=== PATIENT | female | born 1985 | race Caucasian/White ===

== ENCOUNTER 2018-06-30 14:48 | Emergency (ER) | payer OTHER ==
[~2018-06-30] VITALS: Ht 152.4 cm; Wt 62.3 kg
[2018-06-30] MEDS ORDERED: [UNRECOGNIZED DRUG - CODE] PO (14:56)
--- NOTE | 2018-06-30 15:43 | REP ---
Head CT without contrast: History: Episodic visual changes. Now resolved. Comparison study: No comparison study. CT findings: Bone window settings demonstrate an intact bony calvarium. There is no evidence of skull fracture or incidental bony calvarial lesion. The visualized paranasal sinuses appear clear. No intraorbital abnormality is seen. On soft tissue window setting images; the lateral, third, and fourth ventricles are normal in size and position. Crespo-white differentiation pattern is normal above and below the tentorium. There are is no evidence of intracranial hemorrhage. No mass, edema, infarction, or midline shift is seen. No extra-axial fluid collection is appreciated. Impression: Negative noncontrast head CT. Electronically Signed by Bill Zuniga MD 06/30/2018 03:34 P
[2018-06-30] MEDS ORDERED: METOCLOPRAMIDE INJ 10MG/2ML VIAL (J2765) IV ONE (16:30)
--- NOTE | 2018-06-30 16:53 | REP ---
Portable chest x-ray: Single view. History: CVA. Findings: The lungs are well inflated and clear. The pleural angles are sharp. Heart size is normal. Pulmonary vasculature is not increased. No significant bony abnormality is seen. Impression: Negative portable chest x-ray. Electronically Signed by Bill Zuniga MD 06/30/2018 04:44 P
[2018-06-30] MEDS: NS 1,000 ML IV SCH (17:00)
[2018-06-30 17:20] LABS: BASO % 0.5 % (0.0-1.0); EOS # 0.2 10^3/uL (0.0-0.50); EOS % 2.5 % (0.0-3.0); HEMATOCRIT 38.2 % (36.0-47.0); HEMOGLOBIN 12.4 g/dl (12.0-15.5); LYMPH # 1.9 10^3/uL (1.5-4.5); LYMPH % 21.2 % (24.0-44.0); MEAN CORPUSCULAR HGB CONC 32.5 g/dl (32.0-36.5); MEAN CORPUSCULAR VOLUME 95.5 fl (80.0-96.0); MONO # 0.6 10^3/uL (0.0-0.8); MONO % 6.2 % (0.0-5.0); NEUTROPHILS # 6.1 10^3/uL (1.8-7.7); NEUTROPHILS % 69.4 % (36.0-66.0); PLATELET COUNT, AUTOMATED 356 10^3/uL (150-450); WHITE BLOOD COUNT 8.8 10^3/uL (4.0-10.0)
[2018-06-30 17:30] LABS: INR 0.98; PROTHROMBIN TIME 13.1 SECONDS (12.1-14.4)
[2018-06-30 17:31] LABS: PARTIAL THROMBOPLASTIN TIME 28.4 SECONDS (25.4-37.6)
[2018-06-30 17:36] LABS: BLOOD UREA NITROGEN 16 MG/DL (7-18); CALCIUM LEVEL 8.8 MG/DL (8.5-10.1); CARBON DIOXIDE LEVEL 28 MEQ/L (21-32); CHLORIDE LEVEL 106 MEQ/L (98-107); CPK CREATINE PHOSPHOKINASE 115 U/L (26-192); CREATININE FOR GFR 0.65 MG/DL (0.55-1.30); GLOMERULAR FILTRATION RATE > 60.0 (>60); GLUCOSE, FASTING 87 MG/DL (70-100); POTASSIUM SERUM 4.2 MEQ/L (3.5-5.1); SODIUM LEVEL 141 MEQ/L (136-145); TROPONIN I < 0.02 NG/ML (< 0.10)
--- NOTE | 2018-06-30 20:43 | REPVR ---
EXAM: MR Head Without Contrast EXAM DATE/TIME: 06/30/2018 6:25 PM CLINICAL HISTORY: 33 years old, female; Signs and symptoms; Speech disturbance; Slurred speech; Patient HX: Slurred speech, numbness, h/a that has since subsided; Additional info: CVA TECHNIQUE: MR of the head without contrast. COMPARISON: CT Head without contrast 06/30/2018 3:11 PM FINDINGS: No abnormal restriction of diffusion to indicate acute CVA. Midline structures and cerebellar tonsillar position appear normal. Ventricles, cisterns and sulci are symmetric and normal for age. No intracranial mass, midline shift or abnormal extra-axial fluid. No acute intracranial hemorrhage. No abnormal white matter signal on FLAIR and T2 sequences. Optic chiasm and pituitary infundibulum appear normal. Normal vascular flow voids in major intracranial arteries and dural venous sinuses. Paranasal sinuses are clear. Mastoid air cells are normally aerated. Optic globes and orbits are unremarkable. IMPRESSION: Unremarkable noncontrast MRI of the brain. Electronically signed by: Bay Abbott On 06/30/2018 20:43:11 PM
--- NOTE | 2018-06-30 20:53 | REPVR ---
EXAM: MR Angiogram Head Without Contrast, Arteries EXAM DATE/TIME: 06/30/2018 6:25 PM CLINICAL HISTORY: 33 years old, female; Signs and symptoms; Headache; Patient HX: Slurred speech, numbness, h/a that has since subsided; Additional info: CVA TECHNIQUE: MR angiogram head without contrast. Exam focused on the arteries. MIP reconstructed images were created and reviewed. COMPARISON: CT Head without contrast 06/30/2018 3:11 PM FINDINGS: Anterior circulation: Normal flow signal and luminal caliber in the petrous, cavernous and supraclinoid internal carotid arteries. Normal appearance of the anterior cerebral artery branches and middle cerebral artery branches through the MCA trifurcations. No occlusion, high-grade focal stenosis or dissection. No aneurysm. Posterior circulation: Diminutive distal left vertebral artery, terminating in a small posterior fossa branch developmentally. Dominant left vertebral artery supplies the basilar artery. Patent normal caliber basilar artery, and normal superior cerebellar and posterior cerebral arteries. No occlusion, high-grade stenosis or aneurysm. IMPRESSION: Unremarkable MR angiogram of the [place] and intracranial vertebrobasilar system. Electronically signed by: Bay Abbott On 06/30/2018 20:53:17 PM
[2018-06-30 21:50] VITALS: BP 142/76
--- NOTE | 2018-07-01 09:11 | ECGEPIP ---
Stationary ECG Study [facility] - ED Test Date: 2018-06-30 Pat Name: TORRES BLANCO Department: Room: - Gender: F Compounding Technician: OBIE : 1985 Requested By: GARY Pena Order Number: [id number] Reading MD: Ra Waldron Measurements Intervals [place] Rate: 64 P: 46 OK: 143 QRS: 53 QRSD: 89 T: 54 QT: 409 QTc: 424 Interpretive Statements SINUS RHYTHM WITH OCCASIONAL SUPRAVENTRICULAR PREMATURE COMPLEXES Delayed anterior R wave progression Comparison tracing not on file Electronically Signed On 07-01-2018 9:10:58 EST by Ra Waldron
== END 2018-06-30 21:53 | disposition home or self-care (01) ==
LOC: EDBD 14:48 → M ED 14:48
DX: R51 Headache (principal); Z79.899 Other long term (current) drug therapy; Z88.8 Allergy status to other drugs, medicaments and biological substances
CPT/HCPCS: 36415; 70450; 70544; 70551; 71045; 80048; 82550; 82553; 84484; 85025; 85610; 85730; 86850; 86900; 86901; 93005; 93041; 94760; 96361; 96374; 99284; J2765

== ENCOUNTER → 2018-10-26 | Outpatient (CLI) | payer OTHER ==
[~2018-10-26] MED LIST: [UNRECOGNIZED DRUG - OTHER] PO
--- NOTE | 2018-10-26 07:32 | REP ---
Clinical: Abdominal pain. Technique: Axial noncontrast images from the lung bases to the pubic symphysis with coronal and sagittal re-formations. Findings: Lung bases are clear. Liver, spleen, pancreas, gallbladder, bilateral adrenal glands and kidneys are normal. The enteric system is without obstruction or acute inflammatory process. Normal terminal ileum and appendix identified in the right lower quadrant. Pelvis demonstrates collapsed normal bladder and evidence for prior hysterectomy. No ascites. No free air. No adenopathy. Abdominal aorta without aneurysm. Musculoskeletal structures are intact. Impression: No acute abdominopelvic pathology appreciated. Evidence for prior hysterectomy. Electronically Signed by Remi Osuna MD 10/26/2018 07:23 A
== END ==
LOC: M RAD 06:55
PROVIDERS: ATTEND Family Medicine
DX: R10.33 Periumbilical pain (principal); Z90.710 Acquired absence of both cervix and uterus

== ENCOUNTER 2019-06-24 05:33 | Day surgery (SDC) | payer OTHER ==
[~2019-06-24] VITALS: Ht 152.4 cm; Wt 64.4 kg
[~2019-06-24 05:33] MED LIST changes: +HYDR-3363 PO; +NORT25CA2 PO
[2019-06-24] MEDS ORDERED: LIDOCAINE 1% MDV 20ML VIAL SQ PRN (06:00)
[2019-06-24] MEDS ORDERED: LR 1,000 ML IV ONE (07:00)
[2019-06-24] MEDS ORDERED: ceFAZolin SOD 1 GM in D5W MINI-BAG PLUS 50 ML IV ONE (07:00)
[2019-06-24] MEDS ORDERED: propofoL 200 MG/20 ML VIAL As Ordered ONE (07:19)
[2019-06-24] MEDS ORDERED: LIDOCAINE 2% INJ 100 MG/5 ML SDV (FOR ANES.) As Ordered ONE (07:19)
[2019-06-24] MEDS ORDERED: dexameTHASONE 4 MG/ML 1ML VIAL (J1100) As Ordered ONE (07:19)
[2019-06-24] MEDS ORDERED: fentaNYL 100 MCG/2 ML INJECTION (J3010) As Ordered ONE (07:20)
[2019-06-24] MEDS ORDERED: MIDAZOLAM INJ 2 MG/2 ML VIAL (J2250) As Ordered ONE ×2 (07:20→09:46)
[2019-06-24] MEDS ORDERED: BACITRACIN PWD 50,000 UNITS VIAL As Ordered ONE (07:39)
[2019-06-24] MEDS ORDERED: BUPIVACAINE LIPOSOME/PF 1.3% 20ML VIAL (13.3MG/ML)(EXPAREL)(C9290 PER1MG) As Ordered ONE (07:39)
[2019-06-24] MEDS ORDERED: KETAMINE HCL 200 MG/20 ML VIAL As Ordered ONE (07:56)
[2019-06-24] MEDS ORDERED: ROCURONIUM BROMIDE 50 MG/5 ML VIAL As Ordered ONE ×2 (08:06→10:28)
[2019-06-24] MEDS ORDERED: LACRILUBE (AKWA TEARS) OPHTH OINT 3.5 GM As Ordered ONE (08:06)
[2019-06-24] MEDS ORDERED: ONDANSETRON 4MG/2ML VIAL (J2405) As Ordered ONE (08:08)
[2019-06-24] MEDS ORDERED: ACETAMINOPHEN 1000MG 100ML IV BTL (OFIRMEV) (J0131 PER 10MG) As Ordered ONE ×2 (08:08→10:38)
[2019-06-24] MEDS ORDERED: KETOROLAC 60 MG/2 ML VIAL (J1885) As Ordered ONE (08:08)
[2019-06-24] MEDS ORDERED: ePHEDrine SULFATE 25 MG/5 ML(5MG/ML) SYRINGE As Ordered ONE (08:35)
--- NOTE | 2019-06-24 08:57 | POST-OPPD ---
Postoperative Procedure Note Date Of Procedure: Jun 24, 2019 PREOPERATIVE DIAGNOSIS: Symptomatic scar lower abdomen POSTOPERATIVE DIAGNOSIS: same FINDINGS: contracted lower abdominal scar 45cm PROCEDURE: Lower abdominal scar revision. SURGEON: Dr Richardson ANESTHESIA: general SPECIMENS: scar ESTIMATED BLOOD LOSS: 10 cc REPLACED: none DRAINS: 10 mm LUISA COMPLICATIONS: none POSTOPERATIVE CONDITION: stable [id number] RAMAN RICHARDSON DO Jun 24, 2019 08:57
[2019-06-24] MEDS ORDERED: OXYC1TAB23 PO (09:04)
[2019-06-24] MEDS ORDERED: fentaNYL 100 MCG/2 ML INJECTION (J3010) IV PRN (09:15)
[2019-06-24] MEDS ORDERED: oxyCODONE 5MG TAB PO PRN (09:15)
[2019-06-24] MEDS ORDERED: METOCLOPRAMIDE INJ 10MG/2ML VIAL (J2765) IV PRN (09:15)
[2019-06-24] MEDS ORDERED: LR 1,000 ML IV SCH (09:15)
[2019-06-24] MEDS ORDERED: ONDANSETRON 4MG/2ML VIAL (J2405) IV PRN (09:15)
[2019-06-24] MEDS ORDERED: HEPARIN SOD (PORCINE) 5000 UNITS/ML VIAL (J1644 PER 1000UNITS) As Ordered ONE (10:20)
[2019-06-24] MEDS ORDERED: HYDROmorphone HCL 2 MG/ML 1ML VIAL (J1170) As Ordered ONE (10:46)
[2019-06-24 10:50] VITALS: BP 140/82
[2019-06-24] MEDS ORDERED: PHENYLephrine HCL 500 MCG/5 ML (100MCG/ML) SYRINGE (J2370) As Ordered ONE (10:56)
--- NOTE | 2019-06-25 07:24 | RO ---
DATE OF PROCEDURE: 06/24/2019 PREPROCEDURE DIAGNOSIS: Symptomatic lower abdominal scar. POSTPROCEDURE DIAGNOSIS: Symptomatic lower abdominal scar. PROCEDURE: Lower abdominal scar revision. SURGEON: Denise Starr DO RECEP: ANESTHESIA: General. SPECIMEN SENT: Scar. BLOOD LOSS: 10 mL. No replacement. One 10 mm Mohit-Montero drain. No complications. DESCRIPTION OF PROCEDURE: This is a 34-year-old female who has a symptomatic scar on her lower abdomen, status post partial hysterectomy, section. It is a contracted and painful scar. She also has several recurrences with drainage coming out through the scar. The patient is a good candidate for revision. All the risks and benefits and alternatives discussed with the patient in detail. She is ready to proceed. The day of surgery, she was marked in the upright position standing. The whole lower abdominal scar was enclosed into the excision with evening out the surrounding tissues of the healthy tissue that was coming due to contracture. Informed consent was confirmed, and the patient was brought into the operating room, placed in the supine position. Preoperative antibiotics were given. Sequentials were placed on her lower calves. General anesthesia was induced. She was prepped and draped in the usual sterile fashion. We started our procedure by carrying out a large elliptical incision, which was encompassing the whole scar in the lower abdomen. We started our incision on the lower portion and then dissection was carried out using electrocautery until the rectus fascia was identified. There was significant scarring throughout the subcuticular tissue all the way down to the Brayden's and all the way down to the rectus fascia, which all that scar tissue was resected using electrocautery, and a small flap was lifted superiorly until the upper incision was encountered. Then, we completed the superior portion of the elliptical incision and specimen was sent to pathology. Hemostasis was obtained using electrocautery. The wound was irrigated with normal saline. A 10 mm Mohit-Montero drain was placed through the lateral portion of the horizontal incision, and then we also infiltrated Exparel 10 mL throughout the area. Then, we started our closure. The incision was marked with hebert shaw with marking pen. It was closed anew with #2-0 Vicryl sutures and #3-0 Monocryl sutures in interrupted fashion, reapproximating the lower abdominal. Total incision is 45 cm. A Prineo dressing, compression dressing and a binder were placed. The patient was extubated in the operating room without any difficulty, transferred to the recovery room in stable condition.
== END 2019-06-24 10:55 | disposition home or self-care (01) ==
LOC: M SDC 05:33
PROVIDERS: ATTEND Plastic Surgery Surgery of the Hand
DX: L90.5 Scar conditions and fibrosis of skin (principal); T81.31XA Disruption of external operation (surgical) wound, not elsewhere classified, initial encounter; Y83.8 Other surgical procedures as the cause of abnormal reaction of the patient, or of later complication, without mention of misadventure at the time of the procedure; F41.9 Anxiety disorder, unspecified; G43.909 Migraine, unspecified, not intractable, without status migrainosus; R56.9 Unspecified convulsions; N80.9 Endometriosis, unspecified; Z88.8 Allergy status to other drugs, medicaments and biological substances; Z79.899 Other long term (current) drug therapy; Z87.891 Personal history of nicotine dependence
CPT/HCPCS: 13101; 13102; 88302; C9290; J0131; J0690; J1100; J1170; J1644; J1885; J2250; J2370; J2405; J3010

== ENCOUNTER 2020-08-24 09:23 | Observation (INO) | payer OTHER, SELFPAY ==
[~2020-08-24] VITALS: Ht 154.9 cm; Wt 66.2 kg
[~2020-08-24 09:23] MED LIST changes: +LIDOCAINE 1% MDV 20ML VIAL SQ PRN; +LR 1,000 ML IV ONE; +OXYC1TAB23 PO; +ceFAZolin SOD 1 GM in D5W MINI-BAG PLUS 50 ML IV ONE
[2020-08-24 10:09] LABS: HEMATOCRIT 37.1 % (36.0-47.0); HEMOGLOBIN 12.1 g/dl (12.0-15.5); MEAN CORPUSCULAR HEMOGLOBIN 32.7 pg (27.0-33.0); MEAN CORPUSCULAR HGB CONC 32.6 g/dl (32.0-36.5); MEAN CORPUSCULAR VOLUME 100.3 fl (80.0-96.0); PLATELET COUNT, AUTOMATED 322 10^3/uL (150-450); WHITE BLOOD COUNT 6.7 10^3/uL (4.0-10.0)
[2020-08-24 10:19] LABS: INR 0.97; PROTHROMBIN TIME 13.1 SECONDS (12.5-14.3)
[2020-08-24 10:20] LABS: PARTIAL THROMBOPLASTIN TIME 28.3 SECONDS (24.2-38.5)
[2020-08-24] MEDS ORDERED: LIDOCAINE 2% 100MG/5ML SDV (FOR ANES.) As Ordered ONE (10:20)
[2020-08-24] MEDS ORDERED: ROCURONIUM BROMIDE 50 MG/5 ML VIAL As Ordered ONE (10:20)
[2020-08-24] MEDS ORDERED: ONDANSETRON 4MG/2ML VIAL As Ordered ONE (10:20)
[2020-08-24] MEDS ORDERED: dexameTHASONE 4 MG/ML 1ML VIAL (J1100 PER 1MG) As Ordered ONE (10:20)
[2020-08-24] MEDS ORDERED: fentaNYL 250 MCG/5 ML INJECTION (J3010) As Ordered ONE (10:20)
[2020-08-24] MEDS ORDERED: propofoL 200 MG/20 ML VIAL As Ordered ONE (10:20)
[2020-08-24] MEDS ORDERED: MIDAZOLAM INJ 2MG/2ML VIAL (J2250 PER 1MG) As Ordered ONE (10:21)
[2020-08-24 10:26] LABS: BLOOD UREA NITROGEN 12 MG/DL (7-18); CALCIUM LEVEL 8.9 MG/DL (8.5-10.1); CARBON DIOXIDE LEVEL 27 MEQ/L (21-32); CHLORIDE LEVEL 107 MEQ/L (98-107); CREATININE FOR GFR 0.62 MG/DL (0.55-1.30); GLOMERULAR FILTRATION RATE > 60.0 (>60); GLUCOSE, FASTING 92 MG/DL (70-100); POTASSIUM SERUM 3.9 MEQ/L (3.5-5.1); SODIUM LEVEL 138 MEQ/L (136-145)
[2020-08-24] MEDS ORDERED: SCOPOLAMINE 1MG TRANSDERMAL PATCH TOP ONE (10:45)
[2020-08-24] MEDS ORDERED: LIDOCAINE 1% MDV 20ML VIAL As Ordered ONE ×2 (10:46→11:57)
[2020-08-24] MEDS ORDERED: EPINEPHrine INJ 1 MG/ML 1ML AMP As Ordered ONE ×2 (10:46→11:58)
[2020-08-24] MEDS ORDERED: ACETAMINOPHEN 1000MG 100ML IV BTL (OFIRMEV) (J0131 PER 10MG) As Ordered ONE (12:21)
[2020-08-24] MEDS ORDERED: SUGAMMADEX SODIUM 500 MG/5 ML VIAL (BRIDION) As Ordered ONE (12:21)
--- NOTE | 2020-08-24 13:41 | ROOPDOC ---
[facility] Report Of Operation Report of Operation DATE OF PROCEDURE: 08/24/20 PREOPERATIVE DIAGNOSIS: Lipodystrophy abdomen, back POSTOPERATIVE DIAGNOSIS: same FINDINGS: adipose tissue PROCEDURE: Liposuction abdomen and back SURGEON: Dr Richardson ANESTHESIA: General SPECIMENS: Liposuction fluid for gross examination. 3700cc ESTIMATED BLOOD LOSS: 100cc REPLACED: none DRAINS: none COMPLICATIONS: none POSTOPERATIVE CONDITION: stable Procedure: This is a 35-year-old female who complains of excess fatty tissue in her back and abdomen. Patient wishes to have liposuction of the back and abdomen. Risk, benefits, and alternatives were discussed with the patient in detail and she is ready to proceed. She was marked in the upright position in the holding area. Informed consent was confirmed. Patient brought into the operating room. General anesthesia is administered. Then she was placed in the prone position with all bony prominences protected. She was prepped and draped in usual sterile fashion. 2 stab incisions are carried out along her lower back in the mid back. Tumescent solution was infiltrated throughout the upper and lower back total 1000 mL. Tissue protectors inserted in the incisions and secured with Nylon sutures. VASER liposuction was done for 5 minutes with the use of 3.7 mm cannula with 5 rings. Then suction-assisted lipectomy performed evacuating 1200 mL of liposuction fluid. Tissue protectors removed.Stab wounds were closed with interrupted 4-0 Monocryl sutures. Patient is turned in a supine position. She was prepped and draped in the usual sterile fashion. 2 stab incisions made along the old lower abdominal incision. Tumescent solution was infiltrated throughout the upper and lower back total 2200 mL. Tissue protectors inserted in the incisions and secured with Nylon sutures. VASER liposuction was done for 7 minutes with the use of 3.7 mm cannula with 5 rings. Then suction-assisted lipectomy performed evacuating 2500 mL of liposuction fluid. Tissue protectors removed.Stab wounds were closed with interrupted 4-0 Monocryl sutures. Compression garment placed. Patient extubated in operating room without difficulties. She is transferred to recovery in stable condition. RAMAN RICHARDSON DO Aug 24, 2020 13:41
--- NOTE | 2020-08-24 13:41 | POST-OPPD ---
Postoperative Procedure Note Date Of Procedure: Aug 24, 2020 PREOPERATIVE DIAGNOSIS: Lipodystrophy abdomen, back POSTOPERATIVE DIAGNOSIS: same FINDINGS: adipose tissue PROCEDURE: Liposuction abdomen and back SURGEON: Dr Richardson ANESTHESIA: General SPECIMENS: Liposuction fluid for gross examination. 3700cc ESTIMATED BLOOD LOSS: 100cc REPLACED: none DRAINS: none COMPLICATIONS: none POSTOPERATIVE CONDITION: stable RAMAN RICHARDSON DO Aug 24, 2020 13:41
[2020-08-24] MEDS ORDERED: ACETAMINOPHEN TAB 650MG DOSE (2X325MG) PO PRN (13:45)
[2020-08-24] MEDS ORDERED: ONDANSETRON 4MG/2ML VIAL IV PRN ×3 (13:45→16:00)
[2020-08-24] MEDS ORDERED: KETOROLAC TROMETHAMINE 10 MG TAB PO PRN (13:45)
[2020-08-24] MEDS ORDERED: MEPERIDINE 50 MG/ML 1ML VIAL (J2175) As Ordered ONE (13:47)
[2020-08-24] MEDS ORDERED: oxyCODONE 5MG TAB PO PRN ×2 (14:10→16:00)
[2020-08-24] MEDS ORDERED: LR 1,000 ML IV SCH ×2 (14:10→16:00)
[2020-08-24] MEDS: fentaNYL 100 MCG/2 ML INJECTION (J3010) IV PRN ×2 (14:36→14:45)
[2020-08-24 15:15] VITALS: BP 149/109
[2020-08-24] MEDS: LR 1,000 ML IV SCH (15:15)
[2020-08-24 15:45] VITALS: BP 142/90
[2020-08-24] MEDS ORDERED: fentaNYL 100 MCG/2 ML INJECTION (J3010) IV PRN (16:00)
[2020-08-24 16:45] VITALS: BP 139/90
[2020-08-24 17:45] VITALS: BP 137/90
[2020-08-24 18:45] VITALS: BP 119/85
[2020-08-25] MEDS: LR 1,000 ML IV SCH (00:38)
[2020-08-25 01:50] VITALS: BP 104/58
[2020-08-25 06:21] VITALS: BP 115/73
--- NOTE | 2020-08-25 10:34 | IPNPDOC ---
Subjective General Date Seen: Aug 25, 2020 Subject Chief Complaint/History The patient is a 35-year-old female admitted with a reason for visit of Lipodystrophy. Patient s/p abdomen and back high volume liposuction. POD 1. Doing well. No CP, SOB, abdominal pain. Tolerating diet, ambulating. Current Medications Current Medications Current Medications Medications (Trade) Dose Ordered Sig/Alberto Route PRN Reason Start Time Stop Time Status Last Admin Dose Admin Acetaminophen (Tylenol Tab) 650 mg Q6H PRN PO MILD PAIN (PS 1-4) 08/24/20 13:45 Fentanyl Citrate (Sublimaze) 25 mcg Q5MP PRN IV PAIN LEVEL 5-10 08/24/20 14:10 08/24/20 15:10 DC 08/24/20 14:45 Fentanyl Citrate (Sublimaze) 25 mcg Q5MP PRN IV PAIN LEVEL 5-10 08/24/20 16:00 08/24/20 17:00 DC Ketorolac Tromethamine (ToRADol) 10 mg Q6HP PRN PO MODERATE PAIN (PS 5-7) 08/24/20 13:45 08/29/20 13:44 08/25/20 06:36 Lactated Ringer's 1,000 ml @ 75 mls/hr [id number] IV 08/24/20 13:45 Lactated Ringer's 1,000 ml @ 80 mls/hr [id number] IV 08/24/20 14:10 08/24/20 15:10 DC Lactated Ringer's 1,000 ml @ 80 mls/hr [id number] IV 08/24/20 16:00 08/24/20 17:00 DC Lidocaine HCl (LIDOCAINE 1% MDV 20ml) 0.1 ml ONCE PRN SQ DISCOMFORT BEFORE IV START 08/24/20 06:00 08/24/20 15:54 DC Ondansetron HCl (ZOFRAN INJection) 4 mg Q4H PRN IV NAUSEA OR VOMITING 08/24/20 13:45 Ondansetron HCl (ZOFRAN INJection) 4 mg Q4HP PRN IV NAUSEA OR VOMITING 08/24/20 14:10 08/24/20 15:10 DC Ondansetron HCl (ZOFRAN INJection) 4 mg Q4HP PRN IV NAUSEA OR VOMITING 08/24/20 16:00 08/24/20 17:00 DC Oxycodone HCl (Roxicodone, Oxyir) 5 mg ASDIRECTED PRN PO PAIN LEVEL 1-4 08/24/20 14:10 08/24/20 15:10 DC 08/24/20 14:36 Oxycodone HCl (Roxicodone, Oxyir) 5 mg ASDIRECTED PRN PO PAIN LEVEL 1-4 08/24/20 16:00 08/24/20 17:00 DC Allergies Coded Allergies: promethazine (Verified Adverse Reaction, Severe, seizures, 08/23/20) Objective Physical Examination Examination GENERAL APPEARANCE:Patient seen, laying in bed, awake, alert, and oriented. Comfortable, in no acute distress. SKIN: Warm and moist. BREAST: Right and left soft, non-tender incisions intact. LUNGS: Clear to auscultation bilaterally. No wheezing appreciated. HEART: No chest wall abnormalities. Regular rate and rhythm with no murmurs appreciated. ABDOMEN: Abdomen is soft, non-tender, non-distended. Post op swelling mild. Minimal ecchymosis. EXTREMITIES: No edema identified. No calf tenderness. Vital Signs Vital Signs Date Time Temp Pulse Resp B/P (MAP) Pulse Ox O2 Delivery O2 Flow Rate FiO2 08/25/20 06:21 98.4 65 16 115/73 (87) 99 Room Air 08/24/20 13:51 2.0 I&Os I&O- Last 24 Hours up to 6 AM 08/25/20 06:00 Intake Total 2670 ml Output Total 650 ml Balance 2020 ml Impression S/p high volume liposuction POD 1 Stable for discharge. Garment in place. Post op instructions given. F/up plastic surgery. Plan / VTE VTE Prophylaxis Ordered?: Yes RAMAN RICHARDSON DO Aug 25, 2020 10:34
[2020-08-25] MEDS ORDERED: KETO10TAB PO (10:45)
== END 2020-08-25 11:50 | disposition home or self-care (01) ==
LOC: M SDC 09:23 → M MS5PR 13:42 → M SDC 14:41 → M MS5PR 15:15
PROVIDERS: ADMIT Plastic Surgery Surgery of the Hand; ATTEND Plastic Surgery Surgery of the Hand
DX: E88.1 Lipodystrophy, not elsewhere classified (principal); G43.909 Migraine, unspecified, not intractable, without status migrainosus; Z88.8 Allergy status to other drugs, medicaments and biological substances
CPT/HCPCS: 15877; 36415; 80048; 85027; 85610; 85730; 88300; J0131; J0171; J0690; J1100; J2175; J2250; J2405; J3010

== ENCOUNTER → 2024-01-07 | Outpatient (REF) ==
[~2024-01-07] MED LIST changes: +KETO10TAB PO; -LIDOCAINE 1% MDV 20ML VIAL SQ PRN; -LR 1,000 ML IV ONE; -ceFAZolin SOD 1 GM in D5W MINI-BAG PLUS 50 ML IV ONE
== END ==
LOC: M EMP 12:19
PROVIDERS: ATTEND Family Medicine
DX: Z11.52 Encounter for screening for COVID-19 (principal)

== ENCOUNTER → 2024-01-07 | Outpatient (REF) | LOC: M EMP 12:20 | PROVIDERS: ATTEND Family Medicine | DX: Z11.52 Encounter for screening for COVID-19 (principal) ==